=== PATIENT | female | born 1935 | race Native Hawaiian/Other Pacific Islander ===

== ENCOUNTER 2016-03-23 11:25 | Outpatient (CLI) | payer OTHER ==
[~2016-03-23 11:25] MED LIST: ALPR0.2566 PO; ALPR0.5T24 PO; AMLO2.5T PO; ARTIFICIAL TEAR1 OP; ELIQUIS2.5 MG PO; INSUINJ20 SC; INSUINJ32 SC; LEVO0.0218 PO; LEVO500T PO; MELOXICAM7.5 MG OR; METO25TA4 PO; METO50TA63 PO; METOCLOPRAM5 MG PO; MULTIVITAMIN OR; NOVOLIN N1 ML SC; PACERONE100 MG PO; PACERONE200 MG OR; PANT40TA PO; POLY3350 PO; PRADAXA150 MG OR; TRAM50TA PO; XARELTO20 MG OR; XARELTO20 MG PO
== END 2016-03-23 12:25 | disposition home or self-care (01) ==
LOC: RAD 11:25
DX: M79.89 Other specified soft tissue disorders (principal)

== ENCOUNTER 2016-05-26 15:35 | Emergency (ER) | payer OTHER ==
[~2016-05-26] VITALS: Ht 157.5 cm; Wt 63.5 kg
[2016-05-26 16:24] LABS: PLATELET COUNT 185 K/uL (152-353)
[2016-05-26 17:49] VITALS: BP 155/59; TEMP 98
== END 2016-05-26 18:50 | disposition home or self-care (01) ==
LOC: ED 15:35
DX: J11.1 Influenza due to unidentified influenza virus with other respiratory manifestations (principal); J02.0 Streptococcal pharyngitis; E11.9 Type 2 diabetes mellitus without complications; R11.10 Vomiting, unspecified; R19.7 Diarrhea, unspecified
CPT/HCPCS: 36415; 80053; 81000; 83036; 85027; 87804; 87880; 96360; 99284; J2405

== ENCOUNTER 2016-05-30 10:55 | Emergency (ER) | payer OTHER ==
[~2016-05-30] VITALS: Ht 157.5 cm; Wt 63.5 kg
[2016-05-30 11:36] LABS: POTASSIUM 3.1 mmol/L (3.6-5.2); SODIUM 136 mmol/L (136-145)
[2016-05-30 11:38] LABS: PLATELET COUNT 202 K/uL (152-353)
[2016-05-30 16:34] VITALS: BP 129/59; TEMP 99
== END 2016-05-30 16:35 | disposition home or self-care (01) ==
LOC: ED 10:55
PROVIDERS: Specialist
DX: E86.9 Volume depletion, unspecified (principal); J11.1 Influenza due to unidentified influenza virus with other respiratory manifestations; I45.81 Long QT syndrome
CPT/HCPCS: 36415; 36600; 80053; 81000; 82550; 82553; 82805; 83605; 83735; 83880; 84100; 84484; 85027; 85379; 85610; 93005; 96365; 96375; 99284; J1720; J1885; J3411; J3475; J3490

== ENCOUNTER 2016-06-08 11:37 | Outpatient (CLI) | payer OTHER ==
[2016-06-08] MEDS ORDERED: PACERONE200 MG PO (18:17)
== END 2016-06-08 11:39 | disposition short-term general hospital (02) ==
LOC: AMB 11:37
DX: R55 Syncope and collapse (principal)
CPT/HCPCS: A0425; A0427

== ENCOUNTER 2016-06-08 11:39 | Observation (INO) | payer OTHER ==
[2016-06-08] VITALS (7 sets, daily range): BP systolic 128–176; BP diastolic 45–65; TEMP 97.7–97.9; Ht 157.5 cm; Wt 65.1 kg
[~2016-06-08] VITALS: Ht 157.5 cm; Wt 65.1 kg
[2016-06-08 13:53] LABS: PLATELET COUNT 375 K/uL (152-353); POTASSIUM 3.9 mmol/L (3.6-5.2); SODIUM 136 mmol/L (136-145)
[2016-06-08 14:19] LABS: PARTIAL THROMBOPLASTIN TIME 27.2 SECONDS (24.5-33.6)
[2016-06-08] MEDS ORDERED: PACERONE200 MG PO (18:17)
[2016-06-09] VITALS: BP 129/39; TEMP 98.1
[2016-06-09 04:00] VITALS: BP 135/43; TEMP 98.2
[2016-06-09 05:13] LABS: POTASSIUM 3.7 mmol/L (3.6-5.2); SODIUM 139 mmol/L (136-145)
[2016-06-09 05:15] LABS: PLATELET COUNT 326 K/uL (152-353)
[2016-06-09 08:00] VITALS: BP 152/57; TEMP 98.4
[2016-06-09 12:00] VITALS: BP 152/47; TEMP 98.3
--- NOTE | 2016-06-09 12:11 | NUR ---
1200 DR NAVA IN ROOM TO ASSESS PT AT THIS TIME. SONS IN ROOM. ORTHO STATIC VS OBTAINED PER MD REQUEST . LAYING 69 166/62 93% SITTING 80 158/68 95% STANDING 90 152/75500% PT SO OF SEVERE DIZZINESS AND FEELING WEAK WHILE STANDING. ASSITED PT BACK TO BED. AFTER GETTING BACK TO BED PT CO NAUSEA. NEW ORDERS REC'D
[2016-06-09 16:00] VITALS: BP 146/37; TEMP 98.2
--- NOTE | 2016-06-09 17:34 | NUR ---
1530 REPORT GIVEN TO SIVA CASTELLANOS . EMS NOTIFIED OF TRANSFER. PT AND FAMILY AWARE
--- NOTE | 2016-06-09 18:00 | NUR ---
1800 PT LEFT WITH EMS VIA STRECTHER. NO ACUTE DISTRESS NOTED. SONS AT BS.
== END 2016-06-09 18:00 | disposition short-term general hospital (02) ==
LOC: ED 11:39 → MED/SURG 15:45
PROVIDERS: Emergency Medicine; ADMIT Emergency Medicine
DX: A08.4 Viral intestinal infection, unspecified (principal); E86.0 Dehydration; E10.9 Type 1 diabetes mellitus without complications; Z79.4 Long term (current) use of insulin; Z79.02 Long term (current) use of antithrombotics/antiplatelets
CPT/HCPCS: 36415; 36591; 80053; 81000; 82550; 82962; 83735; 83880; 84443; 84484; 85027; 85610; 85730; 93005; 96361; 96365; 96366; 96374; 99220; 99284; G0378; J2405

== ENCOUNTER 2016-06-09 18:10 | Outpatient (CLI) | payer OTHER ==
[~2016-06-09 18:10] MED LIST changes: +PACERONE200 MG PO
== END 2016-06-09 19:23 | disposition short-term general hospital (02) ==
LOC: AMB 18:10
DX: A08.4 Viral intestinal infection, unspecified (principal); E86.0 Dehydration; E10.9 Type 1 diabetes mellitus without complications; Z79.4 Long term (current) use of insulin; Z79.02 Long term (current) use of antithrombotics/antiplatelets
CPT/HCPCS: A0425; A0427

== ENCOUNTER 2016-10-07 12:20 | Outpatient (CLI) | payer OTHER | END 2016-10-07 13:20 | disposition home or self-care (01) | LOC: US 12:20 | DX: R60.0 Localized edema (principal) ==

== ENCOUNTER 2016-11-02 16:37 | Outpatient (CLI) | payer OTHER ==
[2016-11-02 17:04] LABS: POTASSIUM 4.2 mmol/L (3.6-5.2)
== END 2016-11-02 19:58 | disposition home or self-care (01) ==
LOC: LABW 16:37
PROVIDERS: Internal Medicine Cardiovascular Disease
DX: I50.9 Heart failure, unspecified (principal); Z79.899 Other long term (current) drug therapy; Z51.81 Encounter for therapeutic drug level monitoring
CPT/HCPCS: 36415; 80048; 83880

== ENCOUNTER 2016-12-13 09:11 | Outpatient (CLI) | payer OTHER ==
[2016-12-13 09:54] LABS: POTASSIUM 4.6 mmol/L (3.6-5.2)
== END 2016-12-13 19:05 | disposition home or self-care (01) ==
LOC: LABW 09:11
PROVIDERS: Internal Medicine Cardiovascular Disease
DX: Z79.899 Other long term (current) drug therapy (principal); Z51.81 Encounter for therapeutic drug level monitoring
CPT/HCPCS: 80048

== ENCOUNTER 2017-01-13 14:12 | Outpatient (CLI) | payer OTHER ==
[2017-01-13 14:40] LABS: PLATELET COUNT 238 K/uL (152-353)
[2017-01-13 14:48] LABS: POTASSIUM 3.9 mmol/L (3.6-5.2)
== END 2017-01-13 21:38 | disposition home or self-care (01) ==
LOC: LABW 14:12
PROVIDERS: Internal Medicine
DX: K59.09 Other constipation (principal)
CPT/HCPCS: 36415; 80053; 85027

== ENCOUNTER 2017-04-27 09:40 | Outpatient (CLI) | payer OTHER | END 2017-04-27 09:46 | disposition short-term general hospital (02) | LOC: AMB 09:40 | DX: R55 Syncope and collapse (principal); R53.1 Weakness; R20.2 Paresthesia of skin | CPT/HCPCS: A0425; A0427 ==

== ENCOUNTER 2017-04-27 09:46 | Inpatient (IN) | payer OTHER ==
[~2017-04-27] VITALS: Ht 157.5 cm; Wt 62.9 kg
[2017-04-27] VITALS (14 sets, daily range): BP systolic 107–190; BP diastolic 42–85; TEMP 97.8–98.6
[2017-04-27 10:27] LABS: PLATELET COUNT 251 K/uL (152-353)
[2017-04-27 10:31] LABS: POTASSIUM 3.8 mmol/L (3.6-5.2); SODIUM 136 mmol/L (136-145)
[2017-04-28] VITALS (14 sets, daily range): BP systolic 119–167; BP diastolic 43–63; TEMP 97.4–98.1
[2017-04-28 06:21] LABS: PLATELET COUNT 208 K/uL (152-353)
[2017-04-28 06:43] LABS: POTASSIUM 4.2 mmol/L (3.6-5.2)
[2017-04-29] VITALS: BP 130/41; TEMP 98.4
[2017-04-29 04:00] VITALS: BP 116/36; TEMP 98.9
[2017-04-29 08:00] VITALS: BP 130/47; TEMP 98.3
== END 2017-04-29 09:49 | disposition home or self-care (01) | DRG 65 ==
LOC: ED 09:46 → MED/SURG 13:10 → ICU 13:10 → MED/SURG 04-28 11:00
PROVIDERS: ADMIT Family Medicine
DX: I63.9 Cerebral infarction, unspecified (principal); G81.94 Hemiplegia, unspecified affecting left nondominant side; E11.43 Type 2 diabetes mellitus with diabetic autonomic (poly)neuropathy; K31.84 Gastroparesis; Z79.4 Long term (current) use of insulin; E11.42 Type 2 diabetes mellitus with diabetic polyneuropathy; I48.0 Paroxysmal atrial fibrillation; I10 Essential (primary) hypertension; E03.8 Other specified hypothyroidism
CPT/HCPCS: 36415; 80053; 80061; 82947; 82948; 82962; 84484; 85027; 93005; 93306; 96372; J1650; J1815; J2060; J2405; J7060

== ENCOUNTER 2017-08-27 11:49 | Emergency (ER) | payer OTHER ==
[~2017-08-27] VITALS: Ht 157.5 cm; Wt 62.6 kg
[2017-08-27 12:40] LABS: PLATELET COUNT 247 K/uL (152-353)
[2017-08-27 12:52] LABS: POTASSIUM 4.2 mmol/L (3.6-5.2)
[2017-08-27 22:42] VITALS: BP 107/25; TEMP 97.5
== END 2017-08-27 23:07 | disposition short-term general hospital (02) ==
LOC: ED 11:49
PROVIDERS: Specialist
DX: K56.699 Other intestinal obstruction unspecified as to partial versus complete obstruction (principal)
CPT/HCPCS: 36415; 74022; 80053; 82150; 83605; 83690; 83735; 84100; 85027; 85651; 93005; 96361; 96374; 96375; 96376; 99285; J1170; J1720; J1815; J2405; J2543; J2550; J3490

== ENCOUNTER 2017-08-27 23:27 | Outpatient (CLI) | payer OTHER | END 2017-08-28 00:44 | disposition short-term general hospital (02) | LOC: AMB 23:27 | DX: K56.699 Other intestinal obstruction unspecified as to partial versus complete obstruction (principal) | CPT/HCPCS: A0425; A0427 ==

== ENCOUNTER 2017-09-01 11:21 | Emergency (ER) | payer OTHER ==
[~2017-09-01] VITALS: Ht 157.5 cm; Wt 62.6 kg
[2017-09-01 11:30] VITALS: TEMP 98.1
[2017-09-01 12:47] LABS: PLATELET COUNT 200 K/uL (152-353)
[2017-09-01 13:00] LABS: POTASSIUM 3.5 mmol/L (3.6-5.2)
[2017-09-01 15:27] VITALS: BP 178/72
== END 2017-09-01 15:27 | disposition home or self-care (01) ==
LOC: ED 11:21
DX: R11.0 Nausea (principal)
CPT/HCPCS: 36415; 80053; 82150; 83690; 85027; 96361; 96374; 99284; J2405; Q9963

== ENCOUNTER 2017-09-29 08:06 | Outpatient (CLI) | payer OTHER ==
[2017-09-29 09:44] LABS: PLATELET COUNT 201 K/uL (152-353)
== END 2017-09-29 22:02 | disposition home or self-care (01) ==
LOC: LABW 08:06
PROVIDERS: Internal Medicine
DX: R53.82 Chronic fatigue, unspecified (principal); E03.8 Other specified hypothyroidism; E11.40 Type 2 diabetes mellitus with diabetic neuropathy, unspecified
CPT/HCPCS: 36415; 80053; 80061; 81000; 83036; 83735; 84439; 84443; 85027

== ENCOUNTER 2017-12-13 11:52 | Outpatient (CLI) | payer OTHER | END 2017-12-13 21:03 | disposition home or self-care (01) | LOC: LABW 11:52 | DX: K59.1 Functional diarrhea (principal); K64.0 First degree hemorrhoids | CPT/HCPCS: 82272; 82705; 83630; 87015; 87045; 87324; 87328; 87329; 87449; 87899 ==

== ENCOUNTER 2018-02-14 09:17 | Outpatient (CLI) | payer OTHER | END 2018-02-14 20:13 | disposition home or self-care (01) | LOC: US 09:17 | DX: Z13.6 Encounter for screening for cardiovascular disorders (principal); R09.1 Pleurisy; R07.81 Pleurodynia ==

== ENCOUNTER 2018-04-26 20:10 | Emergency (ER) | payer OTHER ==
[~2018-04-26] VITALS: Ht 157.5 cm; Wt 63.5 kg
[2018-04-26 21:15] LABS: PLATELET COUNT 252 K/uL (152-353)
[2018-04-26 21:31] LABS: POTASSIUM 4.7 mmol/L (3.6-5.2); SODIUM 139 mmol/L (136-145)
[2018-04-27 00:15] VITALS: BP 147/83; TEMP 98.8
== END 2018-04-27 00:15 | disposition home or self-care (01) ==
LOC: ED 20:10
PROVIDERS: Internal Medicine
DX: R55 Syncope and collapse (principal); R00.2 Palpitations; E11.65 Type 2 diabetes mellitus with hyperglycemia
CPT/HCPCS: 80053; 82550; 82962; 83735; 84484; 85027; 93005; 96360; 96372; 99284; J1815

== ENCOUNTER 2018-08-01 13:56 | Emergency (ER) | payer OTHER ==
[~2018-08-01] VITALS: Ht 157.5 cm; Wt 63.5 kg
[2018-08-01 14:10] VITALS: TEMP 97.2
[2018-08-01 16:20] VITALS: BP 152/74
== END 2018-08-01 16:29 | disposition home or self-care (01) ==
LOC: ED 13:56
DX: S32.058A Other fracture of fifth lumbar vertebra, initial encounter for closed fracture (principal); X50.9XXA Other and unspecified overexertion or strenuous movements or postures, initial encounter; Y92.89 Other specified places as the place of occurrence of the external cause
CPT/HCPCS: 96372; 99283; J2175

== ENCOUNTER 2018-08-22 14:34 | Emergency (ER) | payer OTHER ==
[~2018-08-22] VITALS: Ht 157.5 cm; Wt 63.5 kg
[2018-08-22 14:42] VITALS: TEMP 98.1
[2018-08-22] MEDS ORDERED: METO10IN2 INJ (15:09)
[2018-08-22] MEDS ORDERED: MAGNESIUM400 M1 PO (15:09)
[2018-08-22] MEDS ORDERED: ALPR0.2566 PO (15:09)
[2018-08-22 16:01] VITALS: BP 162/75
== END 2018-08-22 16:02 | disposition home or self-care (01) ==
LOC: ED 14:34
DX: R07.81 Pleurodynia (principal)
CPT/HCPCS: 99282

== ENCOUNTER 2018-10-05 15:00 | Outpatient (CLI) | payer OTHER ==
[~2018-10-05 15:00] MED LIST changes: +MAGNESIUM400 M1 PO; +METO10IN2 INJ
== END 2018-10-05 23:43 | disposition home or self-care (01) ==
LOC: RAD 15:00
DX: K64.0 First degree hemorrhoids (principal); K59.09 Other constipation

== ENCOUNTER 2018-10-08 14:30 | Outpatient (CLI) | payer OTHER | END 2018-10-08 21:41 | disposition home or self-care (01) | LOC: LAB 14:30 | DX: K64.0 First degree hemorrhoids (principal); K59.09 Other constipation | CPT/HCPCS: 82272 ==

== ENCOUNTER 2018-10-24 08:54 | Outpatient (CLI) | payer OTHER ==
[2018-10-24 09:08] LABS: PLATELET COUNT 259 K/uL (152-353)
== END 2018-10-24 23:44 | disposition home or self-care (01) ==
LOC: LABW 08:54
PROVIDERS: Internal Medicine Gastroenterology
DX: K59.09 Other constipation (principal)
CPT/HCPCS: 36415; 80053; 82150; 83690; 85027

== ENCOUNTER 2018-10-26 12:48 | Outpatient (CLI) | payer OTHER | END 2018-10-26 23:48 | disposition home or self-care (01) | LOC: CT 12:48 | DX: R10.13 Epigastric pain (principal); R11.0 Nausea | CPT/HCPCS: Q9963 ==

== ENCOUNTER 2018-10-26 13:43 | Emergency (ER) | payer OTHER ==
[~2018-10-26] VITALS: Ht 157.5 cm; Wt 65.3 kg
[2018-10-26 15:02] LABS: PLATELET COUNT 265 K/uL (152-353)
[2018-10-26 15:10] LABS: POTASSIUM 3.7 mmol/L (3.6-5.2); SODIUM 138 mmol/L (136-145)
[2018-10-26 15:24] LABS: PARTIAL THROMBOPLASTIN TIME 24.7 SECONDS (24.5-33.6)
[2018-10-26 17:10] VITALS: BP 143/52; TEMP 97.8
== END 2018-10-26 17:10 | disposition home or self-care (01) ==
LOC: ED 13:45
PROVIDERS: Family Medicine
DX: R55 Syncope and collapse (principal)
CPT/HCPCS: 80053; 81000; 82962; 84484; 85027; 85610; 85730; 93005; 99284

== ENCOUNTER 2018-11-07 11:25 | Day surgery (SDC) | payer OTHER ==
[2018-11-07 13:08] LABS: PLATELET COUNT 250 K/uL (152-353)
[2018-11-07 13:15] LABS: POTASSIUM 4.5 mmol/L (3.6-5.2)
== END 2018-11-07 16:35 | disposition home or self-care (01) ==
LOC: OR 11:25
PROVIDERS: Internal Medicine Gastroenterology
PROC: 0DB68ZZ Excision of Stomach, Via Natural or Artificial Opening Endoscopic (ICD-10-PCS; principal; 2018-11-07)
PROC: 0DB88ZZ Excision of Small Intestine, Via Natural or Artificial Opening Endoscopic (ICD-10-PCS; 2018-11-07)
DX: K29.50 Unspecified chronic gastritis without bleeding (principal); K21.0 Gastro-esophageal reflux disease with esophagitis; K44.9 Diaphragmatic hernia without obstruction or gangrene; R10.13 Epigastric pain; R11.0 Nausea; R93.5 Abnormal findings on diagnostic imaging of other abdominal regions, including retroperitoneum
CPT/HCPCS: 80053; 85027; J2001; J2405; J2704

== ENCOUNTER 2018-12-16 15:58 | Emergency (ER) | payer OTHER ==
[~2018-12-16] VITALS: Ht 157.5 cm; Wt 72.6 kg
[2018-12-16 16:11] VITALS: TEMP 98.14
[2018-12-16 16:19] LABS: PLATELET COUNT 296 K/uL (152-353)
[2018-12-16 16:29] LABS: POTASSIUM 3.9 mmol/L (3.6-5.2)
[2018-12-16 16:35] LABS: PARTIAL THROMBOPLASTIN TIME 23.9 SECONDS (24.5-33.6)
[2018-12-16 17:23] VITALS: BP 160/56
== END 2018-12-16 19:39 | disposition short-term general hospital (02) ==
LOC: ED 15:58
PROVIDERS: Hospitalist
DX: G45.9 Transient cerebral ischemic attack, unspecified (principal); R00.1 Bradycardia, unspecified
CPT/HCPCS: 80053; 80320; 82550; 84484; 85027; 85610; 85730; 93005; 99285

== ENCOUNTER 2019-02-16 11:52 | Emergency (ER) | payer OTHER ==
[~2019-02-16] VITALS: Ht 157.5 cm; Wt 72.6 kg
[2019-02-16 11:57] VITALS: TEMP 98.2
[2019-02-16 14:49] VITALS: BP 152/89
== END 2019-02-16 14:49 | disposition home or self-care (01) ==
LOC: ED 11:52
DX: J06.9 Acute upper respiratory infection, unspecified (principal)
CPT/HCPCS: 87502; 87651; 94664; 96372; 99283; J0696; J2920

== ENCOUNTER 2019-04-23 09:11 | Outpatient (CLI) | payer OTHER ==
[2019-04-23 10:56] LABS: PLATELET COUNT 251 K/uL (152-353)
[2019-04-23 11:09] LABS: POTASSIUM 4.9 mmol/L (3.6-5.2)
== END 2019-04-23 22:19 | disposition home or self-care (01) ==
LOC: LABW 09:11 → RAD 09:11
PROVIDERS: Internal Medicine
DX: Z00.00 Encounter for general adult medical examination without abnormal findings (principal); Z12.31 Encounter for screening mammogram for malignant neoplasm of breast; Z13.820 Encounter for screening for osteoporosis; N95.8 Other specified menopausal and perimenopausal disorders; I10 Essential (primary) hypertension; E11.9 Type 2 diabetes mellitus without complications; I48.0 Paroxysmal atrial fibrillation
CPT/HCPCS: 36415; 80053; 80061; 81000; 82306; 83036; 84439; 84443; 85027

== ENCOUNTER 2019-06-04 09:43 | Outpatient (CLI) | payer OTHER | END 2019-06-04 19:41 | disposition home or self-care (01) | LOC: RAD 09:43 | DX: R07.89 Other chest pain (principal); M25.512 Pain in left shoulder; W19.XXXA Unspecified fall, initial encounter ==

== ENCOUNTER 2019-12-10 09:16 | Outpatient (CLI) | payer OTHER ==
[2019-12-10 09:50] LABS: PLATELET COUNT 288 K/uL (152-353)
[2019-12-10 09:59] LABS: POTASSIUM 4.9 mmol/L (3.6-5.2)
== END 2019-12-10 20:24 | disposition home or self-care (01) ==
LOC: LABW 09:16
PROVIDERS: Internal Medicine
DX: E11.9 Type 2 diabetes mellitus without complications (principal)
CPT/HCPCS: 36415; 80053; 80061; 81000; 82043; 82570; 83036; 84439; 84443; 85027

== ENCOUNTER 2020-02-26 12:03 | Emergency (ER) | payer OTHER ==
[~2020-02-26] VITALS: Ht 157.5 cm; Wt 63.5 kg
[2020-02-26 12:12] VITALS: BP 191/58; TEMP 97.3
[2020-02-26 12:32] LABS: PLATELET COUNT 344 K/uL (152-353)
[2020-02-26 12:41] LABS: POTASSIUM 4.9 mmol/L (3.6-5.2)
== END 2020-02-26 14:11 | disposition home or self-care (01) ==
LOC: ED 12:03
PROVIDERS: Family Medicine
DX: J20.9 Acute bronchitis, unspecified (principal); Z20.828 Contact with and (suspected) exposure to other viral communicable diseases
CPT/HCPCS: 80053; 85027; 87635; 94664; 99283; U0003

== ENCOUNTER 2020-07-07 07:16 | Emergency (ER) | payer OTHER ==
[~2020-07-07] VITALS: Ht 157.5 cm; Wt 63.5 kg
[2020-07-07 07:30] VITALS: TEMP 97
[2020-07-07 12:24] VITALS: BP 156/66
== END 2020-07-07 12:25 | disposition home or self-care (01) ==
LOC: ED 07:16
DX: S20.211A Contusion of right front wall of thorax, initial encounter (principal); S39.012A Strain of muscle, fascia and tendon of lower back, initial encounter; S93.491A Sprain of other ligament of right ankle, initial encounter; W18.39XA Other fall on same level, initial encounter; Y92.89 Other specified places as the place of occurrence of the external cause
CPT/HCPCS: 99283

== ENCOUNTER 2020-07-16 09:23 | Outpatient (CLI) | payer OTHER ==
[2020-07-16 10:02] LABS: PLATELET COUNT 339 K/uL (152-353)
[2020-07-16 10:26] LABS: POTASSIUM 3.6 mmol/L (3.6-5.2)
== END 2020-07-16 19:24 | disposition home or self-care (01) ==
LOC: LABW 09:23 → CT 10:00 → LABW 19:24
PROVIDERS: ATTEND Internal Medicine
DX: R10.84 Generalized abdominal pain (principal); E11.40 Type 2 diabetes mellitus with diabetic neuropathy, unspecified; E03.8 Other specified hypothyroidism; S32.050D Wedge compression fracture of fifth lumbar vertebra, subsequent encounter for fracture with routine healing
CPT/HCPCS: 36415; 80053; 80061; 81000; 82306; 83036; 84165; 84439; 84443; 85027

== ENCOUNTER 2020-09-09 11:01 | Outpatient (CLI) | payer OTHER ==
[2020-09-20 10:17] LABS: POTASSIUM 5.1 mmol/L (3.6-5.2)
== END 2020-09-09 17:00 ==
LOC: LABW 11:01
PROVIDERS: ATTEND Internal Medicine Cardiovascular Disease
DX: Z79.899 Other long term (current) drug therapy (principal)
CPT/HCPCS: 36415; 80048; 83735; 84443

== ENCOUNTER 2020-10-13 10:15 | Outpatient (CLI) | payer OTHER ==
[2020-10-13 10:46] LABS: PLATELET COUNT 294 K/uL (152-353)
[2020-10-13 10:51] LABS: POTASSIUM 5.1 mmol/L (3.6-5.2)
== END 2020-10-13 20:36 | disposition home or self-care (01) ==
LOC: LABW 10:15
PROVIDERS: ATTEND Internal Medicine
DX: E11.9 Type 2 diabetes mellitus without complications (principal); E55.9 Vitamin D deficiency, unspecified
CPT/HCPCS: 36415; 80053; 81000; 82306; 84439; 84443; 85027

== ENCOUNTER 2021-01-05 14:44 | Outpatient (CLI) | payer OTHER ==
[2021-01-05 15:19] LABS: PLATELET COUNT 336 K/uL (152-353)
[2021-01-05 15:40] LABS: POTASSIUM 3.5 mmol/L (3.6-5.2)
== END 2021-01-05 21:57 | disposition home or self-care (01) ==
LOC: LAB 14:44
PROVIDERS: ATTEND Internal Medicine
DX: K57.92 Diverticulitis of intestine, part unspecified, without perforation or abscess without bleeding (principal); E11.9 Type 2 diabetes mellitus without complications; E03.8 Other specified hypothyroidism
CPT/HCPCS: 80053; 83036; 84439; 84443; 85027

== ENCOUNTER 2021-01-10 13:10 | Emergency (ER) | payer OTHER ==
[~2021-01-10] VITALS: Ht 157.5 cm; Wt 63.5 kg
[2021-01-10 13:24] VITALS: TEMP 97.6
[2021-01-10 15:54] LABS: PLATELET COUNT 363 K/uL (152-353)
[2021-01-10 16:12] LABS: POTASSIUM 3.7 mmol/L (3.6-5.2)
[2021-01-10 18:47] VITALS: BP 133/76
== END 2021-01-10 18:48 | disposition home or self-care (01) ==
LOC: ED 13:10
PROVIDERS: Emergency Medicine Emergency Medical Services
DX: N39.0 Urinary tract infection, site not specified (principal); R10.31 Right lower quadrant pain; R10.32 Left lower quadrant pain
CPT/HCPCS: 80053; 81000; 82150; 82272; 83690; 83735; 85027; 85610; 87040; 87086; 87088; 96360; 96361; 96365; 99284; Q9963

== ENCOUNTER 2021-03-19 10:28 | Emergency (ER) | payer OTHER ==
[~2021-03-19] VITALS: Ht 157.5 cm; Wt 61.2 kg
[2021-03-19 10:28] VITALS: TEMP 97.9
[2021-03-19 11:10] LABS: PLATELET COUNT 277 K/uL (152-353)
[2021-03-19 11:13] LABS: POTASSIUM 3.2 mmol/L (3.6-5.2)
[2021-03-19 12:07] VITALS: BP 146/66
== END 2021-03-19 12:07 | disposition home or self-care (01) ==
LOC: ED 10:28
PROVIDERS: Hospitalist
DX: I48.20 Chronic atrial fibrillation, unspecified (principal); E87.6 Hypokalemia; I50.9 Heart failure, unspecified
CPT/HCPCS: 80053; 82550; 83880; 84484; 85027; 93005; 99284

== ENCOUNTER 2021-03-22 10:58 | Emergency (ER) | payer OTHER ==
[~2021-03-22] VITALS: Ht 157.5 cm; Wt 61.2 kg
[2021-03-22 11:30] LABS: PLATELET COUNT 296 K/uL (152-353)
[2021-03-22 11:40] LABS: POTASSIUM 5.1 mmol/L (3.6-5.2)
[2021-03-22 12:10] VITALS: BP 135/59; TEMP 98
[2021-03-22 13:01] LABS: PARTIAL THROMBOPLASTIN TIME 27.1 SECONDS (24.5-33.6)
== END 2021-03-22 12:10 | disposition home or self-care (01) ==
LOC: ED 10:58
PROVIDERS: Emergency Medicine
DX: I48.20 Chronic atrial fibrillation, unspecified (principal); Z79.01 Long term (current) use of anticoagulants; I50.9 Heart failure, unspecified
CPT/HCPCS: 80053; 83880; 84484; 85027; 85610; 85730; 93005; 99284

== ENCOUNTER 2021-05-13 09:55 | Outpatient (CLI) | payer OTHER | END 2021-05-13 19:52 | disposition home or self-care (01) | LOC: RAD 09:55 | PROVIDERS: ATTEND Internal Medicine | DX: J01.00 Acute maxillary sinusitis, unspecified (principal) ==

== ENCOUNTER 2021-09-27 15:20 | Outpatient (CLI) | payer OTHER | END 2021-09-27 19:04 | disposition home or self-care (01) | LOC: RAD 15:20 | PROVIDERS: ATTEND Internal Medicine | DX: S90.32XA Contusion of left foot, initial encounter (principal); Y92.9 Unspecified place or not applicable ==

== ENCOUNTER 2022-04-03 21:50 | Inpatient (IN) | payer OTHER ==
[~2022-04-03] VITALS: Ht 157.5 cm; Wt 64.0 kg
[~2022-04-03 21:50] MED LIST changes: +APIX1TAB PO; -ELIQUIS2.5 MG PO; +NOVOLIN N100 UNIT/2 SC; -PANT40TA PO; +PANTOPRAZOLE 40MG TA PO; +[UNRECOGNIZED DRUG - CODE] PO
[2022-04-03 21:54] VITALS: BP 152/75; TEMP 98
[2022-04-03 22:19] LABS: PLATELET COUNT 279 K/uL (152-353)
[2022-04-03 22:38] LABS: POTASSIUM 2.7 mmol/L (3.6-5.2)
[2022-04-03 23:30] VITALS: BP 187/81
[2022-04-04] VITALS (8 sets, daily range): BP systolic 107–195; BP diastolic 34–117; TEMP 97–98.8; Ht 157.5 cm; Wt 64.0 kg
[2022-04-04 05:03] LABS: PLATELET COUNT 218 K/uL (152-353)
[2022-04-04 06:13] LABS: POTASSIUM 4.5 mmol/L (3.6-5.2)
[2022-04-04] MEDS ORDERED: BENZONATATE200 MG PO (09:31)
[2022-04-04] MEDS ORDERED: LEVO0.0529 PO (09:32)
[2022-04-04] MEDS ORDERED: ALPR0.5T24 PO (09:34)
[2022-04-04] MEDS ORDERED: NOVOLIN N100 UNIT/2 SC (09:37)
[2022-04-04] MEDS ORDERED: PACERONE200 MG PO (10:16)
[2022-04-05 03:32] VITALS: BP 154/75; TEMP 97.8
[2022-04-05 08:00] VITALS: BP 137/76; TEMP 98.4
[2022-04-05 09:39] LABS: POTASSIUM 4.9 mmol/L (3.6-5.2)
[2022-04-05 12:00] VITALS: BP 127/50; TEMP 98.6
== END 2022-04-05 16:30 | disposition home or self-care (01) | DRG 999 ==
LOC: ED 21:50 → MED/SURG 23:20
PROVIDERS: Family Medicine; ADMIT Internal Medicine; ATTEND Internal Medicine
DX: E11.649 Type 2 diabetes mellitus with hypoglycemia without coma (principal); U07.1 COVID-19; I48.20 Chronic atrial fibrillation, unspecified; E03.8 Other specified hypothyroidism; E11.42 Type 2 diabetes mellitus with diabetic polyneuropathy; K21.9 Gastro-esophageal reflux disease without esophagitis; M15.8 Other polyosteoarthritis; E87.6 Hypokalemia
CPT/HCPCS: 36415; 80048; 80053; 81002; 82948; 85027; 85379; 87040; 87502; 87635; 93005; 94664; 94667; 94668; 94760; 96360; 96361; 96365; 96367; 96372; 99284; J0456; J0696; J1815; U0003

== ENCOUNTER 2022-05-03 11:15 | Emergency (ER) | payer OTHER ==
[~2022-05-03] VITALS: Ht 157.5 cm; Wt 61.7 kg
[~2022-05-03 11:15] MED LIST changes: +BENZONATATE200 MG PO; +LEVO0.0529 PO
[2022-05-03 11:30] VITALS: TEMP 98.1
[2022-05-03 12:21] LABS: PLATELET COUNT 246 K/uL (152-353)
[2022-05-03 12:29] LABS: POTASSIUM 3.5 mmol/L (3.6-5.2)
[2022-05-03 12:42] LABS: PARTIAL THROMBOPLASTIN TIME 27.3 SECONDS (24.5-33.6)
[2022-05-03 15:15] VITALS: BP 124/74
== END 2022-05-03 15:15 | disposition home or self-care (01) ==
LOC: ED 11:15
PROVIDERS: Emergency Medicine
DX: I10 Essential (primary) hypertension (principal); W01.198A Fall on same level from slipping, tripping and stumbling with subsequent striking against other object, initial encounter; Y92.096 Garden or yard of other non-institutional residence as the place of occurrence of the external cause
CPT/HCPCS: 80053; 84443; 84484; 85027; 85610; 85730; 93005; 96374; 99284; J1885

== ENCOUNTER 2022-06-30 14:21 | Outpatient (CLI) | payer OTHER ==
[2022-06-30 14:46] LABS: PLATELET COUNT 293 K/uL (152-353)
== END 2022-06-30 20:51 | disposition home or self-care (01) ==
LOC: LAB 14:21
PROVIDERS: ATTEND Internal Medicine
DX: E11.43 Type 2 diabetes mellitus with diabetic autonomic (poly)neuropathy (principal); E03.8 Other specified hypothyroidism
CPT/HCPCS: 80053; 80061; 81000; 83036; 84439; 84443; 85027

== ENCOUNTER 2022-08-26 12:50 | Outpatient (CLI) | payer OTHER | END 2022-08-26 19:26 | disposition home or self-care (01) | LOC: US 12:50 | PROVIDERS: ATTEND Internal Medicine | DX: R09.89 Other specified symptoms and signs involving the circulatory and respiratory systems (principal) ==

== ENCOUNTER 2022-10-27 09:10 | Outpatient (CLI) | payer OTHER ==
[2022-10-27 09:56] LABS: POTASSIUM 4.3 mmol/L (3.6-5.2)
== END 2022-10-27 18:57 | disposition home or self-care (01) ==
LOC: LABW 09:10
PROVIDERS: ATTEND Internal Medicine Cardiovascular Disease
DX: Z79.899 Other long term (current) drug therapy (principal); I50.9 Heart failure, unspecified
CPT/HCPCS: 36415; 80048; 83880

== ENCOUNTER 2022-11-30 15:20 | Outpatient (CLI) | payer OTHER | END 2022-11-30 19:20 | disposition home or self-care (01) | LOC: RAD 15:20 | PROVIDERS: ATTEND Internal Medicine | DX: R09.1 Pleurisy (principal); R07.81 Pleurodynia; S33.5XXA Sprain of ligaments of lumbar spine, initial encounter; Y92.89 Other specified places as the place of occurrence of the external cause ==